=== PATIENT | female | born 1995 | race Caucasian/White ===

== ENCOUNTER 2021-02-10 12:28 | Inpatient (IN) | payer MEDICAID, OTHER ==
[2021-02-10] MEDS ORDERED: Ondansetron PF 4 MG/2 ML Vial IVP PRN (13:13)
[2021-02-10] MEDS ORDERED: Guaifenesin DM 100-10/5 ML UDCUP PO PRN (13:13)
[2021-02-10] MEDS ORDERED: Acetaminophen 325 MG TAB PO PRN (13:13)
[2021-02-10] MEDS ORDERED: Ondansetron ODT 4 MG TAB PO PRN (13:13)
[2021-02-10] MEDS ORDERED: Acetaminophen 650 MG Suppository PR PRN (13:13)
[2021-02-10] MEDS ORDERED: Albuterol Sulfate 2.5 mg/3 ml Neb NEB PRN (13:17)
[2021-02-10] MEDS ORDERED: Benzonatate 100 MG CAP PO PRN (13:17)
[2021-02-10 13:50] VITALS: BMI 29.2
[2021-02-10 14:13] LABS: Anion Gap 12 mmol/L (10-20); BUN (Urea Nitrogen) 6 mg/dL (7.0-18.7); Calc. Creatinine Clearance 136 mL/min (70-130); Calcium 7.9 mg/dL (7.8-10.44); Carbon Dioxide 21 mmol/L (22-29); Chloride 113 mmol/L (98-107); Glucose 205 mg/dL (70-105); Potassium 3.8 mmol/L (3.5-5.1); Sodium 142 mmol/L (136-145)
[2021-02-10] MEDS: Sodium Chloride 0.9% 1,000 ML IV SCH ×2 (17:37→23:57)
[2021-02-11 05:36] LABS: #Monocytes 0.7 10x3/uL (0.0-1.1); #Neutrophils 13.7 10x3/uL (1.5-8.4); %Basophils 0.2 % (0.0-2.0); %Lymphocytes 8.8 % (18.0-47.0); %Monocytes 4.3 % (0.0-10.0); %Neutrophils 83.1 % (40.0-75.0); Mean Corpuscular HGB CONC 33.1 g/dL (32.0-36.0); Mean Corpuscular Hemoglobin 29.6 pg (27.0-33.0); Mean Corpuscular Volume 89.2 fl (81.6-98.3); Platelet Count 290 10x3/uL (150-450); RBC Distribution Width 13.3 % (11.5-14.5); Red Blood Cell (RBC) Count 3.72 10x6/uL (3.90-5.03); White Blood Cell (WBC) Count 16.5 10x3/uL (3.5-10.5)
[2021-02-11 05:58] LABS: Anion Gap 13 mmol/L (10-20); BUN (Urea Nitrogen) 9 mg/dL (7.0-18.7); Calc. Creatinine Clearance 159 mL/min (70-130); Calcium 8.6 mg/dL (7.8-10.44); Carbon Dioxide 20 mmol/L (22-29); Chloride 113 mmol/L (98-107); Glucose 149 mg/dL (70-105); Sodium 142 mmol/L (136-145)
[2021-02-11] MEDS ORDERED: FLU VACC QS2021-22(6MOS UP)/PF 60 MCG/0.5 ML SYRINGE IM ONE (09:00)
[2021-02-11] MEDS ORDERED: cefTRIAXone\\ROCEPHIN 1 GM in Sodium Chloride 0.9% 100 ML IVPB SCH (09:00)
[2021-02-11] MEDS: Sodium Chloride 0.9% 1,000 ML IV SCH (09:27)
[2021-02-11] MEDS ORDERED: Azithromycin 500 MG in Sodium Chloride 0.9% 250 ML 250 ML IVPB SCH (09:30)
[2021-02-11 13:02] VITALS: BP 116/71; TEMP 97.6
== END 2021-02-11 14:09 | disposition home or self-care (01) | DRG 871 ==
LOC: CSHTELE 12:28
PROVIDERS: ADMIT Internal Medicine; ATTEND Internal Medicine
DX: A41.9 Sepsis, unspecified organism (principal); J18.9 Pneumonia, unspecified organism; E87.6 Hypokalemia; E83.42 Hypomagnesemia
CPT/HCPCS: 80048; 85025; 87633; 87798; 94760; J0456; J0696; J3490; J7050